=== PATIENT | female | born 1975 | race Caucasian/White ===

== ENCOUNTER 2018-12-20 19:39 | Emergency (ER) | payer SELFPAY ==
[2018-12-20] MEDS ORDERED: Albuterol/Ipratropium 3.0-0.5 MG/3 ML Neb Soln NEB ONE (20:10)
--- NOTE | 2018-12-20 20:15 | EDM.PDOC ---
ED HPI GENERAL MEDICAL PROBLEM - General Chief Complaint: General Stated Complaint: COLD/FLU & STOMACH SORE Time Seen by Provider: 12/20/18 20:00 Source of Information: Reports: Patient History Limitations: Reports: No Limitations - History of Present Illness INITIAL COMMENTS - FREE TEXT/NARRATIVE: 43 yo presents with cough and nasal congestion. She also complains of constipation. Symptoms have been present for 7-10 days. Intermittent headaches. last BM today small and hard. 1-1.5 ppd smoker. 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: Reports: Other (see below) Other 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: unknown Abdomen Pain Score (Numeric/FACES): 6 - Related Data Allergies Allergy/AdvReac Type Severity Reaction Status Date / Time amoxicillin Allergy Rash Verified 12/20/18 20:08 Home Meds: Home Meds ARIPiprazole [Aripiprazole] 10 mg PO DAILY 05/23/18 [History] Aspirin [Halfprin] 81 mg PO DAILY 05/23/18 [History] DULoxetine HCl [Duloxetine HCl] 60 mg PO DAILY 05/23/18 [History] atorvaSTATin [Lipitor] 20 mg PO BEDTIME 05/23/18 [History] Past Medical History Cardiovascular History: Reports: High Cholesterol 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 Denies: Throat Pain Respiratory: Reports: Shortness of Breath, Wheezing, Cough, Sputum Cardiovascular: Reports: Chest Pain GI/Abdominal: Reports: Abdominal Pain, Constipation, Decreased Appetite. Denies : Diarrhea Skin: Denies: Rash ED EXAM, GENERAL - Physical Exam Exam: See Below Exam Limited By: No Limitations General Appearance: Alert, WD/WN, No Apparent Distress Ears: Normal External Exam, Normal Canal, Hearing Grossly Normal, Normal TMs Nose: Normal Inspection, Normal Mucosa, No Blood Throat/Mouth: Normal Lips, Normal Teeth, Inflammation (mild with post nasal drip ) Head: Atraumatic, Normocephalic Respiratory/Chest: No Respiratory Distress, No Accessory Muscle Use, Chest Non- Tender, Decreased Breath Sounds, Wheezing (scattered) Cardiovascular: Regular Rate, Rhythm, No Murmur GI/Abdominal: Normal Bowel Sounds, Soft, Non-Tender, Distended (mild) Neurological: Alert, Oriented Psychiatric: Normal Affect, Normal Mood Skin Exam: Warm, Dry, Intact Course - Vital Signs Last Recorded V/S: Last Vital Signs Temp 36.4 C 12/20/18 20:21 Pulse 88 12/20/18 20:21 Resp 12 12/20/18 20:21 BP 118/64 12/20/18 20:21 Pulse Ox 97 12/20/18 20:21 - Orders/Labs/Meds Orders: Active Orders 24 hr Category Date Time Status RT Aerosol Therapy [RC] ASDIRECTED Care 12/20/18 20:10 Active Meds: Medications Discontinued Medications Generic Name Dose Route Start Last Admin Trade Name Freq PRN Reason Stop Dose Admin Albuterol/Ipratropium 3 ml 12/20/18 20:10 12/20/18 20:16 Duoneb 3.0-0.5 Mg/3 Ml NEB 12/20/18 20:11 3 ml ONETIME ONE Administration Departure - Departure Time of Disposition: 20:29 Disposition: Home, Self-Care 01 Condition: Good Clinical Impression: Sinusitis, acute Qualifiers: Sinusitis location: unspecified location Recurrence: non-recurrent Qualified Code(s): J01.90 - Acute sinusitis, unspecified - Discharge Information *PRESCRIPTION DRUG MONITORING PROGRAM REVIEWED*: Not Applicable *COPY OF PRESCRIPTION DRUG MONITORING REPORT IN PATIENT TARYN: Not Applicable Instructions: Sinusitis, Adult, [id number] Referrals: PCP,None [Primary Care Provider] - Forms: ED Department Discharge Additional Instructions: Azithromycin 500 mg daily for 5 days increase fluid intake to 1-1.5 liters per day stop smoking this will help with the cough use miralax daily until you have a soft bowel movement daily - My Orders Last 24 Hours: My Active Orders 12/20/18 20:10 RT Aerosol Therapy [RC] ASDIRECTED - Assessment/Plan Last 24 Hours: My Active Orders 12/20/18 20:10 RT Aerosol Therapy [RC] ASDIRECTED
== END 2018-12-20 20:37 | disposition home or self-care (01) ==
LOC: JP.ED 19:39
DX: J01.90 Acute sinusitis, unspecified (principal); E78.00 Pure hypercholesterolemia, unspecified; F32.9 Major depressive disorder, single episode, unspecified; Z88.1 Allergy status to other antibiotic agents; Z88.2 Allergy status to sulfonamides
CPT/HCPCS: 94640; 99283-25; J7620-GY

== ENCOUNTER 2019-03-13 07:59 | Emergency (ER) | payer SELFPAY ==
--- NOTE | 2019-03-13 08:42 | EDM.PDOC ---
ED HPI GENERAL MEDICAL PROBLEM - General Chief Complaint: ENT Problem Stated Complaint: POSSIBLE ALLERGIC REACTION TO MEDS Time Seen by Provider: 03/13/19 08:30 Source of Information: Reports: Patient History Limitations: Reports: No Limitations - History of Present Illness INITIAL COMMENTS - FREE TEXT/NARRATIVE: 43-year-old female with swelling on her right face, she has a concern that it may be due to antibiotics that she is on for a tooth infection or gingivitis. She is on cephalexin and has been for the last 2-3 days. The swelling however is only on the right face and around her right eye. There is tenderness but no fever. Onset: Unknown/Unsure (She woke up with swelling this morning) Location: Reports: Face (Right-sided) Associated Symptoms: Reports: Other (Dental pain). Denies: Headaches, Loss of Appetite, Malaise Right Face/Facial Pain Score (Numeric/FACES): 8 - Related Data Allergies Allergy/AdvReac Type Severity Reaction Status Date / Time amoxicillin Allergy Rash Verified 03/13/19 08:10 Home Meds: Home Meds ARIPiprazole [Aripiprazole] 10 mg PO DAILY 05/23/18 [History] Aspirin [Halfprin] 81 mg PO DAILY 05/23/18 [History] DULoxetine HCl [Duloxetine HCl] 60 mg PO DAILY 05/23/18 [History] atorvaSTATin [Lipitor] 20 mg PO BEDTIME 05/23/18 [History] cephALEXin [Cephalexin] 1 tab PO Q6H 03/13/19 [History] Past Medical History Cardiovascular History: Reports: High Cholesterol 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 History: 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 Psychiatric History: Reports: Depression - Infectious Disease History Infectious Disease History: Reports: Chicken Pox, Measles, Mumps Social & Family History - Tobacco Use Smoking Status *Q: Current Every Day Smoker Years of Tobacco use: 30 Packs/Tins Daily: 1 Second Hand Smoke Exposure: Yes - Caffeine Use Caffeine Use: Reports: Coffee, Energy Drinks, Soda - Recreational Drug Use Recreational Drug Use: No ED ROS ENT - Review of Systems Review Of Systems: See Below Constitutional: Denies: Fever, Chills HEENT: Reports: Other (Right upper dental pain) Respiratory: Denies: Shortness of Breath GI/Abdominal: Denies: Abdominal Pain, Nausea, Vomiting Skin: Reports: Erythema, Other (Edema and erythema around the right eye and over the right cheek) Neurological: Denies: Headache ED EXAM, ENT - Physical Exam Exam: See Below Exam Limited By: No Limitations General Appearance: Alert, No Apparent Distress Mouth/Throat: Other (She does appear to have some mucosal swelling on the right maxillary area internal and tenderness to percussion of the second molar which is crowned) Neck: Supple Respiratory/Chest: No Respiratory Distress Course - Vital Signs Last Recorded V/S: Last Vital Signs Temp 96.5 F 03/13/19 08:15 Pulse 90 03/13/19 08:15 Resp 16 03/13/19 08:15 BP 133/84 03/13/19 08:15 Pulse Ox 98 03/13/19 08:15 - Re-Assessments/Exams Free Text/Narrative Re-Assessment/Exam: 03/13/19 08:40 Reassured the patient this is not a reaction to antibiotic but actual inflammation from the inflammatory process in the right maxillary area. She is failing treatment with cephalexin, so this can be stopped and she'll be switched to 300 mg of clindamycin 3 times a day. We also wrote her for a dental referral on Thursday as I think she needs dental x-rays. Departure - Departure Time of Disposition: 08:50 Disposition: Home, Self-Care 01 Clinical Impression: Dental abscess - Discharge Information Instructions: Dental Abscess, [id number] Referrals: PCP,None [Primary Care Provider] - Forms: ED Department Discharge Care Plan Goals: A regular dose of anti-inflammatory such as ibuprofen or naproxen would help, and take 2 pills of clindamycin 3 times a day until you are seen by the dentist. A referral for Thursday has been written for you. Return sooner if worsening despite treatment such as fever or increased inflammation or pain.
== END 2019-03-13 08:50 | disposition home or self-care (01) ==
LOC: JP.ED 07:59
DX: K04.7 Periapical abscess without sinus (principal); F32.9 Major depressive disorder, single episode, unspecified; F17.210 Nicotine dependence, cigarettes, uncomplicated; Z88.1 Allergy status to other antibiotic agents; Z79.82 Long term (current) use of aspirin; Z79.899 Other long term (current) drug therapy
CPT/HCPCS: 99283

== ENCOUNTER 2020-07-09 18:14 | Emergency (ER) | payer MEDICAID ==
--- NOTE | 2020-07-09 19:14 | EDM.PDOC ---
ED HPI GENERAL MEDICAL PROBLEM - General Chief Complaint: ENT Problem Stated Complaint: TOOTH PAIN Time Seen by Provider: 07/09/20 19:04 Source of Information: Reports: Patient, RN Notes Reviewed History Limitations: Reports: No Limitations - History of Present Illness INITIAL COMMENTS - FREE TEXT/NARRATIVE: 5-year-old female presents emergency department with a complaint of dental pain, she states the pain started about 3 days ago she has not had any fevers her dentition is poor she has been unable to get into the [facility] for treatment. 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: Other (see below) Other Treatments EDITOR FARM JOURNAL: nothing since last night Right Upper Tooth/Teeth Pain Score (Numeric/FACES): 8 - Related Data Allergies Allergy/AdvReac Type Severity Reaction Status Date / Time amoxicillin Allergy Rash Verified 07/09/20 18:47 Home Meds: Home Meds DULoxetine HCl [Duloxetine HCl] 60 mg PO DAILY 05/23/18 [History] atorvaSTATin [Lipitor] 20 mg PO BEDTIME 05/23/18 [History] Cyanocobalamin (Vitamin B12) [Vitamin B12] 1,000 mcg PO DAILY 07/09/20 [History] Ergocalciferol (Vitamin D2) [Vitamin D2] 1,250 mcg PO DAILY 07/09/20 [History] Past Medical History Cardiovascular History: Reports: High Cholesterol 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 History: 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 Psychiatric History: Reports: Depression - Infectious Disease History Infectious Disease History: Reports: Chicken Pox, Measles, Mumps Social & Family History - Tobacco Use Tobacco Use Status *Q: Current Every Day Tobacco User Years of Tobacco use: 30 Packs/Tins Daily: 1 - Caffeine Use Caffeine Use: Reports: Soda - Recreational Drug Use Recreational Drug Use: No ED ROS ENT - Review of Systems Review Of Systems: See Below Constitutional: Denies: Fever, Chills HEENT: Reports: Dental Pain ED EXAM, ENT - Physical Exam Exam: See Below Text/Narrative:: Mouth mucosa is moist and pink dentition is poor tooth #6 is quite severe it is tender to the touch I do not appreciate any erythema or edema around this tooth portion of it is missing Exam Limited By: No Limitations General Appearance: Alert, WD/WN, No Apparent Distress Respiratory/Chest: No Respiratory Distress Course - Vital Signs Last Recorded V/S: Last Vital Signs Temp 95.5 F L 07/09/20 18:31 Pulse 88 07/09/20 18:31 Resp 16 07/09/20 18:31 BP 106/60 07/09/20 18:31 Pulse Ox 96 07/09/20 18:31 Departure - Departure Time of Disposition: 19:13 Disposition: Home, Self-Care 01 Condition: Fair Clinical Impression: Dental abscess - Discharge Information Instructions: Dental Abscess, [id number] Referrals: Alayna Sosa PA-C [Primary Care Provider] - Additional Instructions: Take full course of antibiotics, use ibuprofen for baseline pain control use hydrocodone for breakthrough pain, your referral to dental clinic is tomorrow morning at 815 Sepsis Event Note (ED) - Evaluation Sepsis Screening Result: No Definite Risk - Focused Exam Vital Signs: Vital Signs Temp Pulse Resp BP Pulse Ox 07/09/20 18:31 95.5 F L 88 16 106/60 96 - Assessment/Plan Plan: Assessment Acuity = acute Site and laterality = dental abscess tooth #6 Etiology = poor dentition Manifestations = none Location of injury = Home Lab values = none Plan Elected to treat empirically Cotolone 5/325 1 tab p.o. 3 times daily as needed total #4, amoxicillin 500 mg p.o. 3 times daily x10 days referral set up for the dental clinic tomorrow morning at 815 This note was dictated using [employer] voice recognition software please call with any questions on syntax or grammar.
== END 2020-07-09 19:41 | disposition home or self-care (01) ==
LOC: JP.ED 18:14
DX: K04.7 Periapical abscess without sinus (principal); F17.210 Nicotine dependence, cigarettes, uncomplicated; E78.00 Pure hypercholesterolemia, unspecified; F32.9 Major depressive disorder, single episode, unspecified; Z88.1 Allergy status to other antibiotic agents; Z79.899 Other long term (current) drug therapy; Z90.710 Acquired absence of both cervix and uterus
CPT/HCPCS: 99282

== ENCOUNTER 2021-03-19 03:35 | Emergency (ER) | payer MEDICAID ==
--- NOTE | 2021-03-19 04:08 | EDM.PDOC ---
ED HPI GENERAL MEDICAL PROBLEM - General Chief Complaint: Neurological Problem Stated Complaint: MEDICAL VIA [facility] Time Seen by Provider: 03/19/21 03:51 Source of Information: Reports: Patient History Limitations: Reports: No Limitations - History of Present Illness INITIAL COMMENTS - FREE TEXT/NARRATIVE: Patient presents emergency room today via EMS secondary to concern about dizzy episode feeling kind of disorientated out of sorts. She states currently now here in the ER she feels like it has almost resolved. Patient states that around 3:00 she got up and took her medication for her bedtime routine. She went back and sat on the couch when she had episode occur. Her son states that he took she texted him around 0305 regarding episode. Patient denies any associated symptoms other than a brief episode of nausea when dizziness started. She denies any chest pain discomfort shortness of breath difficulty breathing. She denies any recent colds or illness. She says that her normal routine is to be up this late PMH--HLP, olivier's dz, depression/anxiety Meds--mirtazapin, cymbalta, rovastatin, quientiapine Allergies--Amox Tob-1ppd EtOH/Drugs--denies She states she has not had COVID nor has she had the COVID immunization Onset: Today, Sudden - Related Data Allergies Allergy/AdvReac Type Severity Reaction Status Date / Time amoxicillin Allergy Rash Verified 03/19/21 03:40 Home Meds: Home Meds DULoxetine HCl [Duloxetine HCl] 60 mg PO DAILY 05/23/18 [History] Cyanocobalamin (Vitamin B12) [Vitamin B12] 1,000 mcg PO DAILY 07/09/20 [History] Ergocalciferol (Vitamin D2) [Vitamin D2] 1,250 mcg PO DAILY 07/09/20 [History] Mirtazapine 30 mg PO BEDTIME 03/19/21 [History] QUEtiapine Fumarate [Seroquel Xr] 50 mg PO DAILY 03/19/21 [History] Rosuvastatin [Crestor] 20 mg PO DAILY 03/19/21 [History] Past Medical History HEENT History: Reports: Impaired Vision Cardiovascular History: Reports: High Cholesterol 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 CARE SANITARY TECHNICIAN History: 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 Neurological History: Reports: Other (See Below) Other Neuro History: huntingtons Psychiatric History: Reports: Depression - Infectious Disease History Infectious Disease History: Reports: Chicken Pox, Measles, Mumps Social & Family History - Tobacco Use Tobacco Use Status *Q: Current Every Day Tobacco User Years of Tobacco use: 30 Packs/Tins Daily: 1 - Caffeine Use Caffeine Use: Reports: Soda - Recreational Drug Use Recreational Drug Use: No ED ROS GENERAL - Review of Systems Review Of Systems: Comprehensive ROS is negative, except as noted in HPI. Constitutional: Denies: Fever, Chills, Weakness, Fatigue HEENT: Reports: No Symptoms Respiratory: Reports: No Symptoms Cardiovascular: Reports: No Symptoms GI/Abdominal: Reports: Nausea : Reports: No Symptoms Musculoskeletal: Reports: No Symptoms Skin: Reports: No Symptoms Neurological: Reports: Dizziness ED EXAM, NEURO - Physical Exam Exam: See Below Exam Limited By: No Limitations General Appearance: Alert, WD/WN, No Apparent Distress Eye Exam: Bilateral Eye: EOMI, Normal Inspection Ears: Normal External Exam, Hearing Grossly Normal Nose: Normal Inspection Throat/Mouth: Normal Inspection, Normal Oropharynx, Normal Voice, No Airway Compromise Head Exam: Atraumatic, Normocephalic Neck: Normal Inspection, Supple, Non-Tender, Full Range of Motion Respiratory/Chest: No Respiratory Distress, Lungs Clear, Normal Breath Sounds Cardiovascular: Normal Peripheral Pulses, Regular Rate, Rhythm, No Edema, No Murmur GI/Abdominal: Normal Bowel Sounds, Soft, Non-Tender (Female) Exam: Deferred Rectal (Female) Exam: Deferred Neurological: Alert, Normal Mood/Affect, No Motor/Sensory Deficits, Oriented x 3, Other (patient does have some apparent involuntary movements of head, arms, legs that currently is at her baseline/normal for her) Back Exam: Normal Inspection Extremities: Normal Inspection, Normal Capillary Refill Psychiatric: Normal Affect, Normal Mood Skin Exam: Warm, Dry, Intact, Normal Color Course - Vital Signs Text/Narrative:: discussed options in evaluation in the ER tonight to include labs/rad, at this time patient has declined and family at bedside verbalized agreement. I offered labs to be completed several times -- patient declined stating she would rather go home and go to bed/see what happens. she states she has mammogram today at 1330 and further episodes when she gets up/about for that she will contact her primary or return to the ER. I did discuss importance of care when making sudden position changes, hydration, eating balanced diet and good sleep habits/routine. She verbalized understanding/agreement with plan of care, ready for d/c at this time Last Recorded V/S: Last Vital Signs Temp 96.7 F L 03/19/21 03:40 Pulse 93 03/19/21 03:40 Resp 16 03/19/21 03:40 BP 102/69 03/19/21 03:40 Pulse Ox 92 L 03/19/21 03:40 Departure - Departure Time of Disposition: 04:02 Disposition: Home, Self-Care 01 Condition: Good Clinical Impression: Spell of dizziness - Discharge Information *PRESCRIPTION DRUG MONITORING PROGRAM REVIEWED*: Not Applicable *COPY OF PRESCRIPTION DRUG MONITORING REPORT IN PATIENT TARYN: Not Applicable Instructions: Vertigo, [id number], Dizziness, [id number] Referrals: PCP,None [Primary Care Provider] - Forms: ED Department Discharge Additional Instructions: Ensure that you are drinking plenty of fluids--water, juice, sports drinks of choice to stay well hydrated Ensure that you sit for a few minutes on the edge of your bed or couch/chair before getting up and moving as you may have some positional dizziness that occurs If you continue to have episodes of concern follow up with your PCM/Family Physician or return to the ER for further evaluation and management Sepsis Event Note (ED) - Evaluation Sepsis Screening Result: No Definite Risk - Focused Exam Vital Signs: Vital Signs Temp Pulse Resp BP Pulse Ox 03/19/21 03:40 96.7 F L 93 16 102/69 92 L
== END 2021-03-19 04:13 | disposition home or self-care (01) ==
LOC: JP.ED 03:35
DX: R42 Dizziness and giddiness (principal); E78.00 Pure hypercholesterolemia, unspecified; F17.210 Nicotine dependence, cigarettes, uncomplicated; Z88.0 Allergy status to penicillin; Z79.899 Other long term (current) drug therapy
CPT/HCPCS: 99284

== ENCOUNTER 2021-03-29 15:45 | Emergency (ER) | payer MEDICAID ==
--- NOTE | 2021-03-29 16:03 | EDM.PDOC ---
ED HPI GENERAL MEDICAL PROBLEM - General Stated Complaint: COVID POSITIVE - FEELING FAINT Source of Information: Reports: Patient, RN Notes Reviewed History Limitations: Reports: No Limitations - Related Data Allergies Allergy/AdvReac Type Severity Reaction Status Date / Time amoxicillin Allergy Rash Verified 03/24/21 07:59 Home Meds: Home Meds DULoxetine HCl [Duloxetine HCl] 60 mg PO DAILY 05/23/18 [History] Cyanocobalamin (Vitamin B12) [Vitamin B12] 1,000 mcg PO DAILY 07/09/20 [History] Ergocalciferol (Vitamin D2) [Vitamin D2] 1,250 mcg PO DAILY 07/09/20 [History] Mirtazapine 30 mg PO BEDTIME 03/19/21 [History] Rosuvastatin [Crestor] 20 mg PO DAILY 03/19/21 [History] QUEtiapine [SEROquel] 100 mg PO DAILY 03/24/21 [History] Past Medical History HEENT History: Reports: Impaired Vision Cardiovascular History: Reports: High Cholesterol 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 History: 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 Neurological History: Reports: Other (See Below) Other Neuro History: huntingtons Psychiatric History: Reports: Depression - Infectious Disease History Infectious Disease History: Reports: Chicken Pox, Measles, Mumps Social & Family History - Caffeine Use Caffeine Use: Reports: Soda Course - Vital Signs Last Recorded V/S: Last Vital Signs Temp 36.4 C 03/29/21 15:56 Pulse 93 03/29/21 15:56 Resp 16 03/29/21 15:56 BP 121/72 03/29/21 15:56 Pulse Ox 98 03/29/21 15:56 Departure - Discharge Information Referrals: Alayna Sosa PA-C [Primary Care Provider] - Sepsis Event Note (ED) - Focused Exam Vital Signs: Vital Signs Temp Pulse Resp BP Pulse Ox 03/29/21 15:56 36.4 C 93 16 121/72 98
--- NOTE | 2021-03-29 16:22 | EDM.PDOC ---
ED HPI GENERAL MEDICAL PROBLEM - General Chief Complaint: General Stated Complaint: COVID POSITIVE - FEELING FAINT Time Seen by Provider: 03/29/21 16:22 Source of Information: Reports: Patient, RN Notes Reviewed History Limitations: Reports: No Limitations - History of Present Illness INITIAL COMMENTS - FREE TEXT/NARRATIVE: Maryann presents today for complaints of nausea. She was positive for COVID on she had antibody in fusion on 03/24/2021. She now states she feels tired, achy and nauseated with a bad taste in her mouth. She has not tried any OTC medications or treatments for her symptoms. She has not contacted her primary for her symptoms. - Related Data Allergies Allergy/AdvReac Type Severity Reaction Status Date / Time amoxicillin Allergy Rash Verified 03/29/21 16:08 Home Meds: Home Meds DULoxetine HCl [Duloxetine HCl] 60 mg PO DAILY 05/23/18 [History] Cyanocobalamin (Vitamin B12) [Vitamin B12] 1,000 mcg PO DAILY 07/09/20 [History] Ergocalciferol (Vitamin D2) [Vitamin D2] 1,250 mcg PO DAILY 07/09/20 [History] Mirtazapine 30 mg PO BEDTIME 03/19/21 [History] Rosuvastatin [Crestor] 20 mg PO DAILY 03/19/21 [History] QUEtiapine [SEROquel] 100 mg PO DAILY 03/24/21 [History] Past Medical History HEENT History: Reports: Impaired Vision Cardiovascular History: Reports: High Cholesterol CRISIS CLINICIAN History: Reports: Other CRISIS CLINICIAN History: 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 Neurological History: Reports: Other (See Below) Other Neuro History: [place] Psychiatric History: Reports: Depression - Infectious Disease History Infectious Disease History: Reports: Chicken Pox, Measles, Mumps Social & Family History - Tobacco Use Tobacco Use Status *Q: Heavy Tobacco User Years of Tobacco use: 25 Packs/Tins Daily: 1 - Caffeine Use Caffeine Use: Reports: Soda - Recreational Drug Use Recreational Drug Use: No ED ROS GENERAL - Review of Systems Review Of Systems: See Below Constitutional: Reports: Malaise, Decreased Appetite. Denies: Fever, Chills, Weakness, Fatigue, Night Sweats HEENT: Reports: No Symptoms Respiratory: Denies: Shortness of Breath, Wheezing, Pleuritic Chest Pain, Cough, Sputum, Hemoptysis Cardiovascular: Reports: No Symptoms Endocrine: Reports: No Symptoms GI/Abdominal: Reports: Decreased Appetite, Flatus, Nausea. Denies: Abdominal Pain, Anorexia, Black Stool, Bloody Stool, Constipation, Diarrhea, Difficulty Swallowing, Distension, Hematemesis, Hematochezia, Melena, Mucous in Stool, Stool Incontinence, Vomiting : Reports: No Symptoms Musculoskeletal: Reports: No Symptoms Skin: Reports: No Symptoms Neurological: Reports: No Symptoms Psychiatric: Reports: No Symptoms Hematologic/Lymphatic: Reports: No Symptoms Immunologic: Reports: No Symptoms ED EXAM, GENERAL - Physical Exam Exam: See Below Exam Limited By: No Limitations General Appearance: Alert, WD/WN, No Apparent Distress Eye Exam: Bilateral Eye: Normal Inspection, PERRL Ears: Normal External Exam, Normal Canal, Hearing Grossly Normal, Normal TMs Nose: Normal Inspection, Normal Mucosa, No Blood Throat/Mouth: Normal Inspection, Normal Lips, Normal Gums, Normal Oropharynx, Normal Voice, No Airway Compromise Head: Atraumatic, Normocephalic Neck: Normal Inspection, Supple, Non-Tender, Full Range of Motion. No: Lymphadenopathy (R), Lymphadenopathy (L) Respiratory/Chest: No Respiratory Distress, Lungs Clear, Normal Breath Sounds, No Accessory Muscle Use, Chest Non-Tender. No: Crackles, Rales, Rhonchi, Wheezing, Stridor Cardiovascular: Normal Peripheral Pulses, Regular Rate, Rhythm, No Edema, No Gallop, No Murmur, No Rub Peripheral Pulses: 4+: Radial (L), Radial (R) GI/Abdominal: Normal Bowel Sounds, Soft, Non-Tender, No Organomegaly, No Distention, No Mass. No: Guarding, Rigid, Rebound, Tender (Female) Exam: Deferred Rectal (Female) Exam: Deferred Back Exam: Normal Inspection, Full Range of Motion. No: CVA Tenderness (R), CVA Tenderness (L) Extremities: Normal Inspection, Normal Range of Motion, Non-Tender, No Pedal Edema, Normal Capillary Refill Neurological: Alert, Oriented, CN II-XII Intact, Normal Cognition, Normal Gait, Normal Reflexes, No Motor/Sensory Deficits Psychiatric: Normal Affect, Normal Mood Skin Exam: Warm, Dry, Intact, Normal Color, No Rash Lymphatic: No Adenopathy Course - Vital Signs Last Recorded V/S: Last Vital Signs Temp 36.4 C 03/29/21 16:06 Pulse 93 03/29/21 16:06 Resp 16 03/29/21 16:06 BP 121/72 03/29/21 16:06 Pulse Ox 98 03/29/21 16:06 - Re-Assessments/Exams Free Text/Narrative Re-Assessment/Exam: Attempts at education on care of COVID, nausea, preventing spread of COVID provided to patient. Patient verbalized understanding. Departure - Departure Time of Disposition: 16:39 Disposition: Home, Self-Care 01 Condition: Good Clinical Impression: Nausea, COVID - Discharge Information Instructions: Nausea, Adult, 10 Things You Can Do to Manage Your COVID-19 Symptoms at Home - [facility] (01/25/2020) Referrals: Alayna Sosa PA-C [Primary Care Provider] - Forms: ED Department Discharge Additional Instructions: You have been evaluated for nausea while being sick with COVID. You recently had antibody infusions. For nausea you can eat and drink frequently to decrease acid production. Sipping sprite/7-up to help with nausea. You can take ondansetron (zofran) 4mg tablet once every 8 hours as needed. Drink water, gatorade to stay hydrated. Eat Bananas, rice, apple sauce, toast and foods easy to digest. Eat protein to keep your strength up. Have someone else go fill your prescription and obtain foods easy for you to eat. Walk every hour while you are awake and during the day. Follow up with your primary as provided. Return to the emergency room for emergent needs. You must continue to quarantine for 14 days after date of onset of symptoms. Sepsis Event Note (ED) - Evaluation Sepsis Screening Result: No Definite Risk - Focused Exam Vital Signs: Vital Signs Temp Pulse Resp BP Pulse Ox 03/29/21 16:06 36.4 C 93 16 121/72 98 03/29/21 15:56 36.4 C 93 16 121/72 98 - Assessment/Plan Assessment:: Nausea, COVID Plan: Patient evaluated for nausea while being sick with COVID. You recently had antibody infusions. For nausea you can eat and drink frequently to decrease acid production. Sipping sprite/7-up to help with nausea. You can take ondansetron (zofran) 4mg tablet once every 8 hours as needed. Drink water, gatorade to stay hydrated. Eat Bananas, rice, apple sauce, toast and foods easy to digest. Eat protein to keep your strength up. Have someone else go fill your prescription and obtain foods easy for you to eat. Walk every hour while you are awake and during the day. Follow up with your primary as provided. Return to the emergency room for emergent needs. You must continue to quarantine for 14 days after date of onset of symptoms.
== END 2021-03-29 17:29 | disposition home or self-care (01) ==
LOC: JP.ED 15:45
DX: U07.1 COVID-19 (principal); R11.0 Nausea; E78.00 Pure hypercholesterolemia, unspecified; Z79.899 Other long term (current) drug therapy; Z72.0 Tobacco use; Z88.0 Allergy status to penicillin
CPT/HCPCS: 99283

== ENCOUNTER 2022-01-29 15:32 | Emergency (ER) | payer MEDICAID | END 2022-01-29 17:48 | disposition home or self-care (01) | LOC: JP.ED 15:32 | DX: U07.1 COVID-19 (principal); E78.00 Pure hypercholesterolemia, unspecified; Z88.0 Allergy status to penicillin; F17.210 Nicotine dependence, cigarettes, uncomplicated; Z79.899 Other long term (current) drug therapy | CPT/HCPCS: 99283; U0002 ==